=== PATIENT | female | born 1970 | race Caucasian/White ===

== ENCOUNTER 2017-01-30 22:32 | Emergency (ER) | payer OTHER ==
[~2017-01-30] VITALS: Ht 162.6 cm; Wt 67.7 kg
[2017-01-30 22:34] VITALS: BP 144/89
[2017-01-30] MEDS ORDERED: DIPH,PERTUSS(ACELL),TET VAC/PF 0.5 ML IM-VACC ONE ×2 (23:25→23:30)
[2017-01-30] MEDS ORDERED: LIDOCAINE 1%, 20ML INFIL ONE (23:30)
[2017-01-30] MEDS ORDERED: BACITRACIN ZINC OINT 500U/GM, 0.9 GM ONE (23:46)
== END 2017-01-31 00:05 | disposition home or self-care (01) ==
LOC: ED 23:59
DX: S90.474A Other superficial bite of right lesser toe(s), initial encounter (principal); W54.0XXA Bitten by dog, initial encounter; Y93.89 Activity, other specified; Y92.89 Other specified places as the place of occurrence of the external cause; Y99.8 Other external cause status
CPT/HCPCS: 90471; 90715